=== PATIENT | female | born 1985 | race Caucasian/White ===

== ENCOUNTER 2017-12-28 22:00 | Emergency (ER) | payer MEDICAID, OTHER ==
[~2017-12-28] VITALS: Ht 175.3 cm; Wt 77.3 kg
[2017-12-28 22:26] LABS: BASOPHILS % (AUTO) 0.1 % (0-1); EOSINOPHILS # (AUTO) 0.1 X10'3 (0-0.9); EOSINOPHILS % (AUTO) 0.9 % (0-6); HEMATOCRIT 37.5 % (35.0-45.0); HEMOGLOBIN 12.7 g/dl (12.0-16.0); LYMPHOCYTES # (AUTO) 1.9 X10'3 (1.1-4.8); LYMPHOCYTES % (AUTO) 14.4 % (21-51); MEAN CORPUSCULAR HEMOGLOBIN 29.2 PG (27.0-31.0); MEAN CORPUSCULAR HGB CONC 33.8 % (33.0-36.5); MEAN CORPUSCULAR VOLUME 86.4 FL (78-98); MEAN PLATELET VOLUME 9.4 FL (7.4-10.4); MONOCYTES # (AUTO) 0.7 X10'3 (0-0.9); MONOCYTES % (AUTO) 5.4 % (2-12); NEUTROPHILS # (AUTO) 10.5 X10'3 (1.8-7.7); NEUTROPHILS % (AUTO) 79.2 % (42-75); PLATELET COUNT 213 X10'3 (140-440); RED BLOOD COUNT 4.34 X10'6 (4.20-5.60); RED CELL DISTRIBUTION WIDTH 16.6 % (11.5-14.5); WHITE BLOOD COUNT 13.3 X10'3 (4.5-11.0)
[2017-12-28 22:33] LABS: PROTHROMBIN TIME 10.6 SECONDS (9.0-12.0)
[2017-12-28 22:38] LABS: ALANINE AMINOTRANSFERASE 17 U/L (12-78); ALBUMIN 3.5 G/DL (3.4-5.0); ALBUMIN/GLOBULIN RATIO 0.9 (1.1-1.5); ALKALINE PHOSPHATASE 38 IU/L (46-116); ANION GAP 7 (8-16); ASPARTATE AMINO TRANSFERASE 16 U/L (10-37); BILIRUBIN,TOTAL 0.2 MG/DL (0.1-1.0); BLOOD UREA NITROGEN 16 MG/DL (7-18); CALCIUM 8.7 MG/DL (8.5-10.1); CHLORIDE 103 MMOL/L (99-107); GLUCOSE 104 MG/DL (70-104); POTASSIUM 3.9 MMOL/L (3.5-5.1); SODIUM 139 MMOL/L (135-145); TOTAL CARBON DIOXIDE 28.6 MMOL/L (24-32); TOTAL PROTEIN 7.3 G/DL (6.4-8.2); eGFR 84 ML/MIN
[2017-12-28 22:50] LABS: CLARITY,URINE CLEAR (Clear); COLOR,URINE YELLOW (Yellow); GLUCOSE, URINE NEGATIVE (Neg); KETONES,URINE NEGATIVE (Neg); LEUKOCYTE ESTERASE ,URINE TRACE (Neg); OCCULT BLOOD,URINE NEGATIVE (Neg); PH,URINE 6.5 (4.8-8.0); PROTEIN,URINE NEGATIVE (Neg); UROBILINOGEN,URINE 0.2 E.U/dL (0.2-1.0)
[2017-12-28 22:59] LABS: NITRITES, URINE POSITIVE (Neg); UA COLLECTION TYPE VOIDED
[2017-12-28 23:01] LABS: AMORPHOUS URATES 1+; BACTERIA,URINE 3+ /HPF (Neg); MUCUS STRANDS FEW /LPF (Neg); RBC,URINE 0-2 /HPF (0-2); SQUAMOUS EPITHELIAL CELL,UR FEW /LPF (FEW)
[2017-12-28 23:02] LABS: BETA HCG,QUANTITATIVE 5050 mIU/ml
[2017-12-28] MEDS ORDERED: CefTRIAXone inj 1,000 MG in normal saline 50ml IV soln 50 ML IV ONE (23:45)
[2017-12-29] MEDS ORDERED: CefTRIAXone/D5W-Rocephin 1gm 50 ML IV ONE
[2017-12-29] MEDS ORDERED: NO HOME MEDS (00:12)
[2017-12-29] MEDS ORDERED: acetaminophen 325mg tablet PO ONE (00:15)
[2017-12-29] MEDS ORDERED: HYDROmorphone 1 mg/ml syringe IV ONE (03:45)
[2017-12-29 03:55] VITALS: BP 116/74
[2017-12-29] MEDS ORDERED: morphine 4 MG/ML inj SYRINge IV ONE (04:05)
== END 2017-12-29 04:34 | disposition short-term general hospital (02) ==
LOC: ER 22:00
DX: O73.0 Retained placenta without hemorrhage (principal); Z3A.01 Less than 8 weeks gestation of pregnancy
CPT/HCPCS: 36415; 76801; 76817; 76819; 80053; 81001; 84702; 85025; 85610; 87077; 87088; 87186; 96365; 96375; 99285; J0696; J2270; J7030; J7040

== ENCOUNTER 2020-02-18 21:10 | Emergency (ER) | payer MEDICAID ==
[~2020-02-18] VITALS: Ht 175.3 cm; Wt 95.5 kg
[~2020-02-18 21:10] MED LIST: NO HOME MEDS
[2020-02-18 21:57] VITALS: BP 100/83
[2020-02-18] MEDS ORDERED: BENZ-16 PO (22:24)
--- NOTE | 2020-02-19 02:23 | NUR ---
ACCORDING TO LAB, PATIENT NASAL SWAB WAS DONE VIA THE [facility] AND THEY STATED THEY COULD NOT ADD THE MEDIUM TO CONVERT SAMPLE TO A SEND-OUT COVID TEST. AN ATTEMPT WAS MADE TO CALL PATIENT VIA HER DEMOGRAPHIC DATA, BUT PATIENT WAS NOT ABLE TO BE CONTACED. DEMOGRAPHIC PHONE # PROVED ERRONEOUS
== END 2020-02-18 22:40 | disposition home or self-care (01) ==
LOC: ER 21:11
DX: J06.9 Acute upper respiratory infection, unspecified (principal); Z20.828 Contact with and (suspected) exposure to other viral communicable diseases; Z86.19 Personal history of other infectious and parasitic diseases; Z56.0 Unemployment, unspecified; Z79.899 Other long term (current) drug therapy
CPT/HCPCS: 99283